=== PATIENT | female | born 2000 ===

== ENCOUNTER 2024-05-04 03:40 | Emergency (ER) | payer SELFPAY ==
[~2024-05-04] VITALS: Ht 160 cm; Wt 77.2 kg
[2024-05-04 03:41] VITALS: PULSE 142; RESP 22; O2SAT 90
[2024-05-04 03:58] VITALS: BP 148/88; RESP 28; TEMP 97.9; O2SAT 96
[2024-05-04 04:02] VITALS: PULSE 132
--- NOTE | 2024-05-04 04:02 | ED.PDOC ---
History of Present Illness HPI Comments 24 y/o obese F presents with c/o ALOC, today. Patient was dropped off by "friends" at emergency department entrance after being noticed on becoming altered, earlier, this evening, with no additional history provided. Upon arrival to ED, patient was administered 2x 2mg dose of Narcan with positive response. Patient, after being administered Narcan, is confused and has no recollection of events, currently. She denies having any additional associated symptoms or significant medical or substance abuse history at this time. 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 Hx Family History Family History: Unknown Social History Smoker: Non-Smoker Alcohol: Denies ETOH Use Drugs: Denies Drug Use Lives In: Home All Other Systems: Reviewed and Negative (Comprehensive systems review obtained and negative except for what is stated in the HPI.) Physical Exam General Appearance: No Apparent Distress, Obese HEENT: Normal ENT Inspection, Pharynx Normal, TMs Normal Neck: Full Range of Motion, Non-Tender, Normal, Normal Inspection Respiratory: Chest Non-Tender, Lungs Clear, No Accessory Muscle Use, No Respiratory Distress, Normal Breath Sounds, Other (shallow and slow breathing ) Cardiovascular: No Edema, No JVD, No Murmur, No Gallop, Normal Peripheral Pul ses, Regular Rate/Rhythm Breast Exam: Deferred Gastrointestinal: No Organomegaly, Non Tender, No Pulsatile Mass, Normal Bowel Sounds, Soft Genitalia: Deferred Pelvic: Deferred Rectal: Deferred Extremities: No calf tenderness, Normal capillary refill, Normal inspection, Normal range of motion, Non-tender, No pedal edema Musculoskeletal : Apperance: Normal Neurologic: Alert, leader assembler II-XII nml as Tested, No Motor Deficits, No Sensory Deficits, Other (slow to respond ) Cerebellar Function: Normal Reflexes: Normal Skin: Dry, Pallor, Warm Lymphatic: No Adenopathy Was a procedure done? Was a procedure done?: No EKG EKG : Pulse Rate (adult): 132 [place]: Normal Cardiac Rhythm: ST Block: None Hypertrophy: None ST: Normal Differential Dx Considerations may include: opioid overdose, substance abuse X-Ray, Labs, Meds, VS Vital Signs Date Time Temp Pulse Resp B/P (MAP) Pulse Ox O2 Delivery O2 Flow Rate FiO2 05/04/24 04:02 132 05/04/24 03:58 97.9 124 28 148/88 (108) 96 97.9 05/04/24 03:50 132 05/04/24 03:42 97.9 142 22 170/89 (116) 90 97.9 05/04/24 03:41 142 22 90 Room Air* 0 21 Lab Test 05/04/24 03:51 Range/Units White Blood Count 7.3 4.4-10.8 10^3/uL Red Blood Count 4.98 4.0-5.20 10^6/uL Hemoglobin 11.3 L 12.2-16.2 g/dL Hematocrit 37.1 36.0-46.0 % Mean Corpuscular Volume 74.4 L 80.0-100.0 fL Mean Corpuscular Hemoglobin 22.7 L 28.0-32.0 pg Mean Corpuscular Hemoglobin Concent 30.5 L 32.0-36.0 g/dL Red Cell Distribution Width 20.1 H 11.8-14.3 % Platelet Count 187 140-450 10^3/uL Mean Platelet Volume 8.8 6.9-10.8 fL Neutrophils (%) (Auto) 62.9 37.0-80.0 % Lymphocytes (%) (Auto) 29.7 10.0-50.0 % Monocytes (%) (Auto) 6.8 0.0-12.0 % Eosinophils (%) (Auto) 0.1 0.0-7.0 % Basophils (%) (Auto) 0.5 0.0-2.0 % Neutrophils # (Auto) 4.6 1.6-8.6 10 ^3/uL Lymphocytes # (Auto) 2.2 0.4-5.4 10 ^3/uL Monocytes # (Auto) 0.5 0-1.3 10 ^3/uL Eosinophils # (Auto) 0 0-0.8 10 ^3/uL Basophils # (Auto) 0 0-0.2 10 ^3/uL Nucleated Red Blood Cells 0.2 % Sodium Level 140 136-145 mmol/L Potassium Level 3.1 L 3.5-5.1 mmol/L Chloride Level 104 98-107 mmol/L Carbon Dioxide Level 22 20-31 mmol/L Anion Gap 14 5-15 Blood Urea Nitrogen 13 9-23 mg/dL Creatinine 1.21 H 0.550-1.02 mg/dL Glomerular Filtration Rate Calc 63 >90 mL/min BUN/Creatinine Ratio 10.7 10.0-20.0 Serum Glucose 282 H 74-106 mg/dL Calcium Level 9.7 8.7-10.4 mg/dL Plasma/Serum Blood Alcohol < 3.0 <10 mg/dL Current Medications Medications (Trade) Dose Ordered Sig/Aileen Route Start Time Stop Time Status Last Admin Naloxone HCl (Narcan) 2 mg ONCE ONCE IV 05/04/24 04:00 05/04/24 04:01 DC 05/04/24 04:07 Naloxone HCl (Narcan) 2 mg ONCE ONCE IV 05/04/24 04:00 05/04/24 04:01 DC 05/04/24 04:07 Sodium Chloride 1,000 ml @ 1,000 mls/hr Q1H ONCE IV 05/04/24 04:15 05/04/24 05:14 05/04/24 04:15 Time of 1ST Reevaluation: 04:15 Reevaluation 1ST: Unchanged Patient Education/Counseling: Diagnosis, Treatment Family Education/Counseling: No Family Present Departure 1 Departure Time of Disposition: 04:59 (Patient became A&O x4. Patient likely overdosed on narcotics since she responded to Narcan. Patient then signed out AMA.) Impression: Primary Impression: Opiate overdose Qualified Codes: T40.601A - Poisoning by unspecified narcotics, accidental (unintentional), initial encounter Disposition: 07 LEFT AGAINST MEDICAL ADVICE Condition: Serious Critical Care Note Critical Care Time?: Yes Critical care comment: Opiate overdose Authorized and Performed by: Cayden Almonte MD Total critical care time: Approximately 36 minutes Due to a high probability of clinically significant, life threatening deterioration, the patient required my highest level of preparedness to intervene emergently and I personally spent this critical care time directly and personally managing the patient. This critical care time included obtaining a history; examining the patient; pulse oximetry; ordering and review of studies; arranging urgent treatment with development of a management plan; evaluation of patient's response to treatment; frequent reassessment; and, discussions with other providers. This critical care time was performed to assess and manage the high probability of imminent, life-threatening deterioration that could result in multi-organ failure. It was exclusive of separately billable procedures and treating other patients and teaching time. Please see my other sections and the rest of the note for further information on patient assessment and treatment. Stability Stability form required: No Heart Score Heart Score: Heart Score Response (Comments) Value History N/A 0 EKG N/A 0 Age N/A 0 Risk Factors N/A 0 Troponin N/A 0 Total 0 I personally scribed for CAYDEN ALMONTE MD ([email or web address]) on 05/04/24 at 04:02. Electronically submitted by Diogenes Bermudez ([email or web address]). CAYDEN ALMONTE MD May 04, 2024 04:02
[2024-05-04] MEDS: NALOXONE HCL 1MG/ML 2ML SYRINGE IV ONE ×2 (04:07)
[2024-05-04 04:09] LABS: Basophils # (auto) 0 10 ^3/uL (0-0.2); Basophils % (auto) 0.5 % (0.0-2.0); Eosinophils # (auto) 0 10 ^3/uL (0-0.8); Eosinophils % (auto) 0.1 % (0.0-7.0); Hematocrit 37.1 % (36.0-46.0); Hemoglobin 11.3 g/dL (12.2-16.2); Lymphocytes # (auto) 2.2 10 ^3/uL (0.4-5.4); Lymphocytes % (auto) 29.7 % (10.0-50.0); Mean Corpuscular Hemoglobin 22.7 pg (28.0-32.0); Mean Corpuscular Hgb Conc. 30.5 g/dL (32.0-36.0); Mean Corpuscular Volume 74.4 fL (80.0-100.0); Monocytes # (auto) 0.5 10 ^3/uL (0-1.3); Monocytes % (auto) 6.8 % (0.0-12.0); Neutrophils # (auto) 4.6 10 ^3/uL (1.6-8.6); Neutrophils % (auto) 62.9 % (37.0-80.0); Nucleated Red Blood Cells % 0.2 %; Platelet Count (auto) 187 10^3/uL (140-450); Red Blood Cells 4.98 10^6/uL (4.0-5.20); White Blood Cell 7.3 10^3/uL (4.4-10.8)
[2024-05-04 04:10] LABS: Red Cell Distribution Width 20.1 % (11.8-14.3)
[2024-05-04 04:15] LABS: Chloride 104 mmol/L (98-107); Sodium 140 mmol/L (136-145)
[2024-05-04] MEDS: SODIUM CHLORIDE 0.9% 1,000 ML IV ONE (04:15)
[2024-05-04 04:16] LABS: Anion Gap 14 (5-15); Calcium 9.7 mg/dL (8.7-10.4); Carbon Dioxide 22 mmol/L (20-31)
[2024-05-04 04:21] LABS: BUN/Creatinine Ratio 10.7 (10.0-20.0); Blood Urea Nitrogen 13 mg/dL (9-23)
[2024-05-04 04:23] LABS: Blood Alcohol < 3.0 mg/dL (<10); Glucose 282 mg/dL (74-106); Potassium 3.1 mmol/L (3.5-5.1)
--- NOTE | 2024-05-04 05:38 | ECG ---
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
== END 2024-05-04 04:59 | disposition left against medical advice (07) ==
LOC: ER 03:40
DX: T40.0X1A Poisoning by opium, accidental (unintentional), initial encounter (principal); E66.9 Obesity, unspecified; Y92.9 Unspecified place or not applicable
CPT/HCPCS: 36415; 80048; 80320; 82947; 85025; 93005; 96361; 96374; 99284; J7030; 96376